=== PATIENT | male | born 1985 | race Caucasian/White ===

== ENCOUNTER 2022-03-13 20:34 | Emergency (ER) | payer BC ==
[~2022-03-13] VITALS: Ht 172.7 cm; Wt 107.6 kg
[~2022-03-13 20:34] MED LIST: ACETAMINOPHEN-118 M1 PO; ACETAMINOPHEN325 M1 PO; CLINDAMYCIN HC300 MG PO; DEXAMETHASONE4 MG PO; LEVAQUIN500 MG PO; NASAL SPRAY30 M1 NAS; PREDNISONE10 MG PO; PROBIOTIC1 EAC1 PO
--- OUTSIDE RECORDS SUMMARY | 2022-03-13 20:36 | XMS ---
Blake Notification: MARILEE JEAN BAPTISTE Security Kerrick Kleaner Operator Events No recent Security Events currently on file CRITERIA MET - [facility] CARE PROVIDERS TENZIN SUE Physician Production Line Current PHONE: Unknown Lexi has no Care Guidelines for this patient. ETani VISIT COUNT (12 MO.) 1 MAURIZIO Mitchell TOTAL 1 NOTE: Visits indicate total known visits. ED/UCC VISIT TRACKING (12 MO.) 03/13/2022 20:35 MAURIZIO Perez OR TYPE: Emergency COMPLAINT: - FLANK PAIN, ABD PAIN, FEVER INPATIENT VISIT TRACKING (12 MO.) No inpatient visits to display in this time frame [email or web address]
[2022-03-13] MEDS ORDERED: DEXTROAMP-AMPHE30 MG PO (20:59)
[2022-03-13] MEDS ORDERED: CLARITIN10 M2 PO (21:00)
[2022-03-13] MEDS ORDERED: VENTOLIN HFA18 GM INH (21:00)
[2022-03-13] MEDS ORDERED: FLOMAX0.4 MG PO (23:17)
[2022-03-13] MEDS ORDERED: ONDANSETRON ODT8 MG PO (23:17)
[2022-03-13] MEDS ORDERED: HYDROCODON-ACE1 EA10 PO (23:17)
[2022-03-15] MEDS ORDERED: LEVOFLOXACIN500 MG PO ×2 (11:43→11:44)
[2022-03-15] MEDS ORDERED: OXYCODONE HCL5 MG PO ×2 (11:43→11:44)
== END 2022-03-14 00:14 | disposition home or self-care (01) ==
LOC: ED 20:34
DX: N13.2 Hydronephrosis with renal and ureteral calculous obstruction (principal); J45.909 Unspecified asthma, uncomplicated; F17.200 Nicotine dependence, unspecified, uncomplicated; Z91.013 Allergy to seafood; Z79.899 Other long term (current) drug therapy
CPT/HCPCS: 36415; 74177; 80053; 81001; 83690; 85025; 96375; 99284-25; J1100; J1200; J2270; J2405; J7030; Q9967

== ENCOUNTER 2022-03-15 05:44 | Day surgery (SDC) | payer BC ==
[~2022-03-15] VITALS: Ht 172.7 cm; Wt 105.9 kg
[~2022-03-15 05:44] MED LIST changes: +CLARITIN10 M2 PO; +DEXTROAMP-AMPHE30 MG PO; +FLOMAX0.4 MG PO; +HYDROCODON-ACE1 EA10 PO; +ONDANSETRON ODT8 MG PO; +VENTOLIN HFA18 GM INH
[2022-03-15] MEDS ORDERED: OXYCODONE HCL5 MG PO ×2 (11:43→11:44)
[2022-03-15] MEDS ORDERED: LEVOFLOXACIN500 MG PO ×2 (11:43→11:44)
--- NOTE | 2022-03-20 07:37 | OR ---
[facility] [address] [facility] [place], [place] [address] Signed DATE OF OPERATION: 03/15/2022 SURGEON: Dulce Moon MD PREOPERATIVE DIAGNOSES: 1. Obstructing 9 mm right ureteropelvic junction calculus. 2. Acute kidney injury, secondary to obstructing 9 mm right ureteropelvic junction calculus. POSTOPERATIVE DIAGNOSES: 1. Obstructing 9 mm right ureteropelvic junction calculus. 2. Acute kidney injury, secondary to obstructing 9 mm right ureteropelvic junction calculus. 3. Diminutive urethral meatus. NAMES OF PROCEDURES: 1. Urethral dilation using Filippo sounds, from 16-Bermudian to 26-Bermudian. 2. Diagnostic cystoscopy with right retrograde pyelogram. 3. Flexible nephroureteroscopy with laser lithotripsy and basket extraction of stone fragments. 4. Insertion of a 6 x 26 double-J ureteral stent into the right collecting system. ANESTHESIA: General. ESTIMATED BLOOD LOSS: Minimal. COMPLICATIONS: None. SPECIMENS: Multiple stone fragments sent to the lab for stone analysis. DRAINS: A 6 x 26 Imajin double-J ureteral stent inserted into the right collecting system. INDICATIONS FOR PROCEDURE: Mr. Jean Baptiste is a very pleasant 36-year-old gentleman with no prior history of nephrolithiasis, who presented to me in outpatient clinic yesterday with a 4-day history Electronically Signed By: DULCE MOON MD 03/20/22 0737 PATIENT NAME: MARILEE JEAN BAPTISTE OPERATIVE REPORT DATE OF : 87 REPORT #: [id number] PHYSICIAN: DULCE MOON MD PCP: NO PRIMARY CARE PHYSICIAN REPORT IS CONFIDENTIAL AND NOT TO BE RELEASED WITHOUT AUTHORIZATION [facility] [address] [place], [place] [address] Signed of intermittent right-sided flank pain and low-grade fevers. He presented to the emergency department the night before last with severe onset of right-sided flank pain and nausea and vomiting. He had undergone a CT scan, which revealed an actively obstructing 9 mm right ureteropelvic junction calculus with associated hydronephrosis. He also underwent a basic metabolic panel at that time, which did reveal an acute increase in his creatinine level, suggestive of acute kidney injury secondary to obstruction of his right kidney. After a detailed discussion of the risks and benefits of ureteroscopy, the patient agreed to undergo ureteroscopic extraction of his acutely obstructing 9 mm right ureteropelvic junction calculus. FINDINGS: 1. Visual inspection of the external genitalia reveals a normal circumcised phallus with a glanular meatus. The meatus is noted to be quite diminutive on exam. The patient's urethral meatus was therefore dilated using [place] sounds from 16-Bermudian to 26-Bermudian without incident. 2. Diagnostic cystoscopy was performed, which revealed no evidence of any suspicious masses, lesions, or stones. Bilateral ureteral orifices were noted to be in their normal anatomic location and effluxing clear urine. 3. Ureteroscopy reveals no significant prostatic hypertrophy, however, there is a mildly elevated bladder neck. 4. Right retrograde pyelogram was performed which revealed a mild narrowing at the level of the right ureteropelvic junction. There was a filling defect noted within the right renal pelvis, suggestive of the previously acutely obstructing renal calculus. 5. Right flexible nephroureteroscopy was performed and the large 9 mm stone was noted just lateral to the right ureteropelvic junction. This stone was fragmented using a holmium laser at 8 and 0.8 settings with a 270 micron fiber. The stone was moderately difficult to fragment. However, overall the fragmentation was successful. Approximately 80% of the stone burden was successfully removed from the right kidney today. The majority of the remaining stone fragments are now in the form of stone dust that will likely pass with adequate hydration. 6. At the end of the procedure, a 6 x 26 Imajin hydro double-J ureteral stent was inserted into the right collecting system under direct visualization without difficulty. The string was left attached to the stent for the patient to utilize during removal at a later date. DESCRIPTION OF PROCEDURE: After informed consent was obtained, the patient was taken back to the operating room. [facility] table, where general anesthesia was induced. He was placed in the dorsal lithotomy position and his genitalia were prepped and draped in the standard sterile fashion. The urethral meatus was noted to be diminutive and so it was dilated using Filippo sounds from 16-Bermudian to 26-Bermudian without difficulty. Using a 30-degree lens on a 22.5-Bermudian introducer, a rigid Electronically Signed By: DULCE MOON MD 03/20/22 0737 PATIENT NAME: MARILEE JEAN BAPTISTE OPERATIVE REPORT DATE OF : 87 REPORT #: [id number] PHYSICIAN: DULCE MOON MD PCP: NO PRIMARY CARE PHYSICIAN REPORT IS CONFIDENTIAL AND NOT TO BE RELEASED WITHOUT AUTHORIZATION [facility] [address] [place] [id number] Signed cystoscope was inserted through his urethra and into his bladder under direct visualization. Panendoscopic views of the bladder were then obtained. Please see the above findings. Attention was then turned to the right ureteral orifice. A cone-tipped catheter was used to perform a right retrograde pyelogram. Please see above findings. I then advanced a 0.03 Sensor wire through the right ureteral orifice and up into the right collecting system. I confirmed adequate placement of the wire using fluoroscopy. Over the wire, I passed a 11/13 ureteral access sheath into the right ureter under fluoroscopic guidance. There was a minimum amount of resistance during passage of the sheath. Overall, I was able to get the sheath in good position up to the level of the midportion of the right ureter. I performed another retrograde pyelogram through the sheath to confirm adequate placement. I advanced a flexible ureteroscope through the sheath and into the proximal right ureter and right renal pelvis. Diagnostic nephroscopy was performed and the 9 mm stone was located without difficulty. It was fragmented using a holmium laser and a 270 micron fiber. The settings were 8 and 0.8. The stone fragmented after about 25 minutes of holmium laser treatment. A Zero tip basket was then used to grasp the larger stone fragments from the right kidney. The right UPJ is mildly narrowed, which made it a bit more difficult to get the larger stones out of the right kidney, however, we were ultimately successful. Once I was satisfied that all the significant stone fragments were removed from the right renal pelvis, I withdrew the ureteroscope, leaving the sheath still intact. I passed a 0.035 Sensor wire through the sheath and into the right renal pelvis. The ureteral access sheath was then removed fully intact. Over the Sensor wire, I passed a 6 x 26 cm, Imajin stent into the right collecting system under direct visualization without difficulty. The stent was left with a string attached that was ultimately secured to the patient's penis. Fluoroscopy and cystoscopy were used to confirm adequate placement of the stent. The string was secured to the patient's phallus and the procedure was terminated. The patient tolerated the procedure well without any complication. He will now be transferred to the postanesthesia care unit in stable condition. DISPOSITION: I discussed the details of today's procedure with the patient's and answered all of her questions. He will be sent home today with Levaquin 500 mg one tablet p.o. daily for a total of 8 days, along with oxycodone 5 mg one tablet p.o. q.6 hours p.r.n. pain, dispense #20. I informed the patient's that the patient may remove his indwelling right ureteral stent using the string attached in five days, which would be March 20, 2022. He will be scheduled to return to clinic in approximately 4 to 6 weeks for his 1st postoperative visit. At that time, we will discuss the results of his stone analysis and recheck his urine to rule out any potential stone or stent related UTI. Electronically Signed By: DULCE MOON MD 03/20/22 0737 PATIENT NAME: MARILEE JEAN BAPTISTE OPERATIVE REPORT DATE OF : 87 REPORT #: [id number] PHYSICIAN: DULCE MOON MD PCP: NO PRIMARY CARE PHYSICIAN REPORT IS CONFIDENTIAL AND NOT TO BE RELEASED WITHOUT AUTHORIZATION [facility] [address] [place] [address] [address] [place] [address] Signed Dulce Moon MD AR/MODL /[id number] Copies: ~ Electronically Signed By: DULCE MOON MD 03/20/22 0737 PATIENT NAME: MARILEE JEAN BAPTISTE OPERATIVE REPORT DATE OF : 87 REPORT #: [id number] PHYSICIAN: DULCE MOON MD PCP: NO PRIMARY CARE PHYSICIAN REPORT IS CONFIDENTIAL AND NOT TO BE RELEASED WITHOUT AUTHORIZATION
== END 2022-03-15 13:20 | disposition home or self-care (01) ==
LOC: DS 05:44
PROVIDERS: ATTEND Urology
PROC: 0TC68ZZ Extirpation of Matter from Right Ureter, Via Natural or Artificial Opening Endoscopic (ICD-10-PCS; principal; 2022-03-15 07:30)
PROC: 0T768DZ Dilation of Right Ureter with Intraluminal Device, Via Natural or Artificial Opening Endoscopic (ICD-10-PCS; 2022-03-15 07:30)
DX: N13.2 Hydronephrosis with renal and ureteral calculous obstruction (principal); N17.9 Acute kidney failure, unspecified; F17.210 Nicotine dependence, cigarettes, uncomplicated; Z91.013 Allergy to seafood
CPT/HCPCS: 74420; 82365; C1769; C2617; J0690; J1100; J1885; J2250; J2405; J2704; J2765; J3010; J7121; Q9967